=== PATIENT | male | born 1940 | race Caucasian/White ===

== ENCOUNTER → 2020-09-17 09:38 | Outpatient (BNVA) | payer MEDICARE, SELFPAY | PROVIDERS: Family Provider Nurse Practitioner; PCP Nurse Practitioner; Visit Provider Nurse Practitioner Family | DX: J44.1 Chronic obstructive pulmonary disease with (acute) exacerbation (principal); R06.02 Shortness of breath; F17.210 Nicotine dependence, cigarettes, uncomplicated | CPT/HCPCS: 71046; 80053; 85025 ==

== ENCOUNTER → 2020-12-28 10:30 | Outpatient (BNVA) | payer MEDICARE, SELFPAY | PROVIDERS: Family Provider Nurse Practitioner; PCP Nurse Practitioner; Visit Provider Nurse Practitioner Family | DX: K62.5 Hemorrhage of anus and rectum (principal); K64.9 Unspecified hemorrhoids | CPT/HCPCS: 85025 ==

== ENCOUNTER 2021-01-14 12:30 | Outpatient (CLI) | payer MEDICARE, SELFPAY ==
[2021-01-14] MEDS: iohexol 300 mg/mL 50 mL Btl PO (14:02)
[2021-01-14 14:28] LABS: Blood Urea Nitrogen 11 mg/dL (8-23)
--- NOTE | 2021-01-14 14:30 | CT_ITS ---
WS: [id number] Exam: CT chest abd pel w con* Date/Time of Exam: 01/14/2021 1:00 PM Reason For Exam: K62.89 - Other specified diseases of anus and rectum DLP: All CT scans at [facility] use at least one of these dose optimization techniques: automat ed exposure control; mA and/or kV adjustment per patient size (includes targeted exams where dose is matched to clinical indication); or iterative reconstruction. CT scan of the chest with contrast. There is a spiculated bilobulated mass in the left lower lobe measuring approximately 7.5 x 4.1 cm. A separate 1 cm spiculated nodule is seen in the lateral aspect of the left lower lobe. Moderate-sized left basal pleural effusion is seen. No pneumothorax. Central lobar emphysematous changes are noted. 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 No obvious dissection is seen. No significant mediastinal or hilar lymphadenop athy noted. The airway is patent. The central pulmonary arteries are clear. The lungs are hyperinflat ed. Extensive atherosclerotic plaquing of the thoracic aorta. No destructive bone lesions are noted. Coronary artery calcifications. No pericardial effusion. CT/CT chest abd pel w con* IMPRESSION: 1. 7.5 x 4.1 cm spiculated mass in the left lower lobe. There is an additional 1 cm spiculated nodule seen in the lateral aspect of the left lower lobe. This may represent primary pulmonary malignancy or metastatic disease. Moderate size left basal pleural effusion. 2. No significant lymphadenopathy in the chest. Central lobar emphysematous tushar nges. 3. Mild aneurysmal dilatation of the descending thoracic aorta. This measures 3 .6 cm at greatest diameter. No dissection is seen. CT scan of the abdomen and pelvis with oral and IV contrast. The liver, and spleen are unremarkable. Tiny stones in the gallbladder. Moder ate amount stool in the colon. The appendix is difficult to localize but there are no findings that suggest acute cholecystitis. No lymphadenopathy or free fl uid. Extensive atherosclerotic plaquing involving the common iliac arteries as well as the internal and external iliac arteries. No mass or lymphadenopathy in the pelvis. Intact urinary bladder. Prostatomegaly. 1.1 cm low-attenuation nod ule in the left lateral aspect of the prostate gland. No destructive bone lesio ns are seen. Degenerative anterolisthesis of L4 on L5. There is wall thickening of the stomach that might reflect gastritis. The pancreas is unremarkable. The portal vein and IVC are patent. There is mild dilatation of the upper abdomina l aorta measuring about 3.3 cm at greatest diameter. The remaining abdominal ao rta is normal in caliber. Extensive atherosclerotic plaquing of the abdominal a virgilio and major vessels. Normal adrenal glands. Small bilateral renal cysts are noted. The kidneys function normally. Small bilateral nonobstructing renal ston es as well as vascular calcifications. Small bowel loops are not dilated. IMPRESSION: 1. Cholelithiasis but no sign of acute cholecystitis. 2. Wall thickening of the stomach which may indicate gastritis. 3. Prostatomegaly with nonspecific 1.1 cm low-attenuation lesion in the left pr ostate gland. Malignancy not excluded. 4. Mild dilatation of the upper abdominal aorta measuring 3.3 cm at greatest di ameter. No dissection seen. 5. Small nonobstructing bilateral renal stones. Small bilateral renal cysts. 6. Advanced atherosclerotic disease of the abdominal aorta and major branches a s well as the major arteries in the pelvis.
[2021-01-14] MEDS: iodixanol 320 mg/mL 100mL Btl IV (14:39)
[2021-01-26 08:06] LABS: Miscellaneous Test See Scanned Lab Rpt
== END 2021-01-14 12:31 | disposition home or self-care (01) ==
PROVIDERS: PCP Nurse Practitioner Family; Visit Provider Surgery
DX: K92.1 Melena (principal); K62.89 Other specified diseases of anus and rectum; R39.11 Hesitancy of micturition; K80.20 Calculus of gallbladder without cholecystitis without obstruction; N40.0 Benign prostatic hyperplasia without lower urinary tract symptoms; N20.0 Calculus of kidney; I25.10 Atherosclerotic heart disease of native coronary artery without angina pectoris
CPT/HCPCS: 71260; 74177; 82565; 84520; 88341; 88342; Q9967

== ENCOUNTER → 2021-01-15 12:40 | Outpatient (BNVA) | payer MEDICARE, SELFPAY | PROVIDERS: PCP Nurse Practitioner Family; Visit Provider Surgery | DX: K62.89 Other specified diseases of anus and rectum (principal); R91.8 Other nonspecific abnormal finding of lung field; K92.1 Melena | CPT/HCPCS: 88305 ==

== ENCOUNTER 2021-01-28 15:07 | Outpatient (CLI) | payer MEDICARE, SELFPAY ==
[2021-01-28 17:09] LABS: Basophils # 0.1 10^3/uL (0.0-0.1); Eosinophils # 0.2 10^3/uL (0.0-0.8); Eosinophils % 2.3 %; Hematocrit 36.3 % (42.0-52.0); Hemoglobin 11.4 g/dL (11.7-16.6); Lymphocytes # 1.5 10^3/uL (0.8-4.8); Mean Corpuscular HGB Conc 31.4 g/dL (30.0-36.0); Mean Corpuscular Hemoglobin 28.3 pg (28.0-34.0); Mean Corpuscular Volume 90.1 fl (80-94); Mean Platelet Volume 12.3 fL (7.4-10.4); Monocytes # 0.7 10^3/uL (0.2-0.9); Monocytes % 9.3 %; Neutrophils # 4.79 10^3/uL (1.8-7.7); Neutrophils % 66.1 %; Nucleated Red Blood Cells % 0 %; Platelet Count 221 10^3/cmm (130-400); Red Blood Count 4.03 10^6/uL (4.1-5.3); Red Cell Distribution Width 16.9 % (12.1-15.1); White Blood Count 7.2 10^3/uL (4.0-10.0)
--- NOTE | 2021-01-28 18:03 | ONC CON_ITS ---
Dr. Kong New Patient Note Patient: Shlomo Villarreal Unit #: [id number]: 1940 Dicatated By: Bayron Kong M.D.Date of Visit: Jan 28, 2021 Onc MED New Patient/Consult Referring Physician: Dr. DARCIE GONSALVES M.D. Chief Complaint: Rectal cancer/lung mass. History of Present Illness: This is an 80-year-old man with recently diagnosed rectal adenocarcinoma. He also has CT evidence of a left lower lobe lung mass. He had presented with rectal bleeding, onset somewhere around January 2020. He underwent an evaluation in [place] with Dr. Reji Reyes. He underwent EGD and colonoscopy on 06/11/2020. The EGD showed acute antral erosive gastritis as well as erosive duodenitis. There were stigmata of recent bleeding. He was noted on digital exam to have a hard, fixed and nodular rectal mass estimated at 3 cm from the anal verge and estimated at 5 cm in size. Colonoscopy showed a partially circumferential mass which measured 5 cm in length. Biopsy showed fragments of adenomatous villoglandular mucosa. A 10 mm sigmoid colon polyp was consistent with tubular adenoma. His evaluation also included CT abdomen/pelvis and he was initially planned to have medical oncology and radiation oncology consultations, but he never followed through with that. His rectal bleeding persisted, and he was seen by Dr. Gonsalves on 12/29/2020. He underwent repeat biopsy of the rectal mass by radial scope on 01/15/2021. Pathology showed invasive adenocarcinoma with intact nuclear expression of mismatch repair proteins. In the meantime, CT scans of the chest, abdomen, and pelvis on 01/14/2021 showed evidence of a circumferential rectal mass extending over a length of 4.6 cm. Asymmetric soft tissue thickening along the posterior rectal wall slightly greater to the midline measured up to 2.5 cm. There is no adenopathy noted in the abdomen/pelvis, and there is no evidence of metastatic involvement in the liver. The prostate was noted to be enlarged with a nonspecific 1.1 cm low-attenuation lesion in the left prostate gland, malignancy not excluded. Also noted was a 7.5 x 4.1 cm spiculated mass in the lower lobe of the left lung with an additional 1 cm spiculated nodule in the lateral aspect of the left lower lobe. The appearance was consistent with primary pulmonary malignancy or metastatic disease. There was associated moderate sized left basal pleural effusion. There was no significant lymphadenopathy in the chest. He is seen now for further management. He has been generally weak, particularly during the past day or 2. His activity has been very limited for least several months. His ECOG score is 2. He has not had good appetite, but he has been eating some. His weight is down at least 20 pounds. He does not have fever or night sweats. He has shortness of breath and he does use inhalers regularly. He also uses oxygen at night. He has occasional smoker's cough. He has not had chest pain or hemoptysis. He does not complain of nausea. He does have constipation. His bowels move about every 3 days with milk of magnesia. He does tend to have some pain with bowel movements and he continues to have rectal bleeding, though lately it has been less. He has urinary frequency and hesitancy with urination. He has no significant joint or bone pain. He does not complain of headache. Recently he has had some dizziness. Is also recently had some numbness in his lip on the right side and he has noted some shaking in his right hand. Past Medical History: His medical history includes benign prostatic hypertrophy, and chronic obstructive pulmonary disease. He has a history of hypertension, currently not requiring medication. Past Surgical History: EGD and colonoscopy on 06/11/2020, and he underwent repeat rectal biopsy on 01/15/2021. His other surgical/procedural history consists of bilateral cataract excisions, detached retina repair, and left elbow surgery. Medications: Albuterol Sulfate HFA 2 Puff(s) (of 108 (90 base) mcg/act) Aerosol, solution Inhalation ac (tid) & at bedtime, Anusol-HC Cream Topical PRN, Budesonide 1 Inhalation (of 0.5 mg/2mL) Suspension Inhalation b.i.d., Lidocaine Cream Topical PRN, Perforomist 2 mL (of 20 mcg/2mL) Nebulization solution Inhalation b.i.d., Tamsulosin HCl 1 Capsule (of 0.4 mg) Oral b.i.d. Allergies: No Known Allergies. Social History: Mr. Villarreal is . He has a history of smoking 2 packs of cigarettes daily for 70 years. Alcohol use is estimated at 3-6 beers per day. Family History: Father lived to age 92. Mother of breast cancer. One brother is still living at age 80. Review Of Symptoms: Constitutional - He has been feeling weak generally, and his activity is limited. He has not been eating well. His weight is down at least 20 pounds. He does not have fever or night sweats. ECOG score is 2, Eyes - He has had a significant decline in vision since his eye surgery, ENMT - He has hearing loss. No tinnitus. He occasionally has sinus drainage. No mouth sores. No sore throat or difficulty swallowing, Hematologic/Lymphatic - He has easy bruising, Respiratory - He has shortness of breath and he is on inhalers. He uses oxygen at night. He has a smoker's cough. No pleuritic pain or hemoptysis, Cardiovascular - No angina pain. No palpitations, Gastrointestinal - He has been having constipation. His bowels move about every third day taking milk of magnesia. He has had red blood in the stool, but not as much recently. He does have some pain with bowel movements, Genitourinary (M) - No dysuria or hematuria. He has urinary frequency and hesitancy. No urgency or incontinence, Musculoskeletal - No significant joint or bone pain, Integumentary - No skin rash or other skin changes, Neurologic - No headache. Recently he has had some dizziness. He has had some numbness in his lip on the right side. He has had some shaking in his right hand. No other focal neurologic symptoms, Psychiatric - No anxiety or depression. No insomnia. Vital Signs: Performed on Jan 28, 2021 15:56: 0, 0, 21.67, 1.94 sq.m, 72 in, 98 %, 84 /min, 18 /min, 135/74 mm(hg), 98.4 F, and 159.8 lbs (HIGH). Physical Examination: Constitutional - He appears chronically ill, Eyes - Sclerae nonicteric. Conjunctivae clear, ENMT - No lesions noted in the oral cavity, Neck - No mass or thyromegaly, Hematologic/Lymphatic - No cervical, clavicular, or axillary adenopathy, Respiratory - Lungs are clear with diminished air movement bilaterally, Cardiovascular - Heart rhythm is regular. There is no murmur, gallop, or rub noted, Abdomen - Soft and non-tender. Liver and spleen are not enlarged. There is no abdominal mass or ascites noted and there is no inguinal adenopathy, Back/Spine - No spine or CVA tenderness noted, Extremities - Mild edema, Integumentary - No rashes. There is a fairly prominent actinic lesion on the right forearm, Neurologic - No focal neurologic deficits noted. Problem List: 1. Invasive adenocarcinoma of the rectum, MSI stable. Staging is incomplete. 2. Left lower lobe lung mass with associated pleural effusion. This could be metastatic, but the appearance is much more suggestive of primary lung malignancy. 3. He also had CT evidence of enlarged prostate containing a 1.1 cm low-attenuation lesion in the left prostate gland, also suspicious for malignancy. 4. He had EGD evidence of gastritis and duodenitis in May 2020. 5. COPD. 6. Benign prostatic hypertrophy. 7. He has a history of hypertension, currently not requiring medication. Problems Addressed with this Encounter and Plan: 1. Patient with invasive adenocarcinoma of the rectum, MSI stable. Staging is incomplete. He has associated rectal bleeding and he also appears to be experiencing some obstructive symptoms. He also has CT evidence of a left lower lobe lung mass, appearance of which is most suggestive of a second primary malignancy. With associated pleural effusion, it would appear to be locally advanced and inoperable. He also has poor performance status. Under the circumstances, his management is most likely going to be palliative, and I am inclined to recommend that we proceed with chemoradiation for the rectal cancer to control bleeding and prevent obstruction. During that time, we can arrange for further evaluation of the lung mass with thoracentesis and/or lung biopsy. He will have further evaluation/treatment planning as indicated. In the meantime, I will check baseline laboratory studies today to include CBC, comprehensive metabolic profile, serum iron studies, CEA level. 2. There was also CT evidence for possible malignancy in the prostate, and I will include a PSA level with his lab studies. He will have further evaluation as indicated. Signed By: Bayron Kong M.D. <<Signature on File>>
[2021-01-28 18:07] LABS: Carcinoembryonic Antigen 7.6 ng/mL (0.0-4.7)
[2021-01-28 18:18] LABS: Alanine Aminotransferase 11 U/L (0-41); Albumin Level 4.1 g/dL (3.5-5.2); Alkaline Phosphatase 104 IU/L (40-130); Anion Gap 12.4 (5-19); Aspartate Amino Transferase 21 U/L (0-40); Blood Urea Nitrogen 11 mg/dL (8-23); Calcium 8.8 mg/dL (8.5-10.5); Carbon Dioxide 29 mmol/L (22-29); Chloride 97 mmol/L (98-107); Globulin 3.1 g/dL (1.3-4.6); Glucose 82 mg/dL (65-115); Osmolality Calculated 276 mOsm/kg (285-295); Potassium 4.4 mmol/L (3.5-5.1); Sodium 134 mmol/L (136-145); Total Bilirubin 0.7 mg/dL (0.15-1.2); Total Protein 7.2 g/dL (6.6-8.7)
[2021-01-28 18:32] LABS: Iron 36 ug/dL (59-158); Percent Saturation 8.6 % (20-50); Total Iron Binding Capacity 414 mcg/dl; Unsaturated Iron Binding 378 ug/dL (112-347)
[2021-01-28 18:56] LABS: Slide Review Slide Review Perform
== END 2021-01-28 15:08 | disposition home or self-care (01) ==
LOC: ONCMED 15:16
PROVIDERS: PCP Nurse Practitioner Family; Visit Provider Internal Medicine Medical Oncology
DX: C20 Malignant neoplasm of rectum (principal); R91.8 Other nonspecific abnormal finding of lung field; N40.0 Benign prostatic hyperplasia without lower urinary tract symptoms; J90 Pleural effusion, not elsewhere classified; K29.70 Gastritis, unspecified, without bleeding; K29.80 Duodenitis without bleeding; J44.9 Chronic obstructive pulmonary disease, unspecified; Z79.899 Other long term (current) drug therapy
CPT/HCPCS: 36415; 80053; 82378; 83540; 83550; 84153; 85025; 86850; 86900; 99205

== ENCOUNTER 2021-02-18 06:35 | Outpatient (RCR) | payer MEDICARE, SELFPAY ==
--- NOTE | 2021-02-01 15:31 | N.ONRAD NP_ITS ---
Radiation Oncology Consultation Patient Name: Shlomo Villarreal Date of : 1940 Date of Service: 02/01/2021 Attending Physician: Amari De La Cruz M.D. Shlomo Villarreal was seen in consultation this afternoon at the request of Bayron Kong M.D. for consideration of pelvic radiotherapy in the management of a recently diagnosed rectal cancer. He previously was evaluated at [facility] in [place], [place] (medical records were requested and personally reviewed) during the early winter of this year. An EGD and colonoscopy were performed. A biopsy of a rectal mass 5 cm from the anal verge identified an invasive adenocarcinoma. A pathological consultation was requested from the [facility]. He was evaluated by a nurse practitioner in December for continued rectal bleeding (6 months). His initial hemoglobin was 10.5 g/dL and the RDW was elevated (20.5%). A thoracoabdominopelvic CT scan (independently visualized in [facility]) ordered on January 14, 2021 identified a circumferential rectal mass measuring 4.6 cm in length with asymmetric soft tissue thickening along the posterior wall, a 7.5 cm x 4.1 cm left lower lobe lung mass, a 1 cm spiculated nodule in the lateral aspect of the left lower lobe, and a moderate sized pleural effusion. An anoscopy with biopsy was performed by Santi Gonsalves M.D. on January 18, 2021. Pathology diagnosed an invasive adenocarcinoma with normal expression of DNA mismatch repair proteins. The CEA was elevated (7.6 ng/mL). The patient presents for discussion regarding pelvic radiotherapy. I discussed with Mr. Villarreal the AJCC presumed clinical stage IIIB (T3Nx) rectal cancer corresponding to his disease. I also reviewed the National Comprehensive Cancer Network Guidelines for neoadjuvant chemoradiotherapy or total neoadjuvant therapy preceding chemoradiation. In consideration of a probable synchronous lung cancer (potentially M1a -pleural effusion) disease, palliative radiotherapy should be considered. I anticipate a five week course of pelvic radiotherapy. A computed tomographic radiotherapy planning scan with contrast in the treatment position will be acquired to delineate the gross tumor volume and regional lymph nodes. The potential toxicities of pelvic radiotherapy were reviewed. The patient has verbalized understanding would like to proceed as recommended. The patient's medical treatment plan was discussed with Bayron Kong M.D. Signed by: Dr. Amari De La Cruz 02/01/2021 3:29:48 PM
--- NOTE | 2021-02-04 | CT_ITS ---
Radiation Therapy Planning CT images; total exam DLP: 988.22 mGy-cm MTDD
[2021-02-04] MEDS: iodixanol 320 mg/mL 100mL Btl (RAD THERAPY ONLY) IV (09:03)
[2021-02-16 14:49] LABS: Basophils # 0.1 10^3/uL (0.0-0.1); Basophils % 0.8 %; Eosinophils # 0.1 10^3/uL (0.0-0.8); Eosinophils % 1.6 %; Hematocrit 30.9 % (42.0-52.0); Hemoglobin 9.7 g/dL (11.7-16.6); Lymphocytes # 1.1 10^3/uL (0.8-4.8); Lymphocytes % 16.7 %; Mean Corpuscular HGB Conc 31.4 g/dL (30.0-36.0); Mean Corpuscular Hemoglobin 28.1 pg (28.0-34.0); Mean Corpuscular Volume 89.6 fl (80-94); Mean Platelet Volume 10.3 fL (7.4-10.4); Monocytes # 0.7 10^3/uL (0.2-0.9); Monocytes % 10.6 %; Neutrophils # 4.41 10^3/uL (1.8-7.7); Nucleated Red Blood Cells % 0 %; Platelet Count 274 10^3/cmm (130-400); Red Blood Count 3.45 10^6/uL (4.1-5.3); Red Cell Distribution Width 17.2 % (12.1-15.1); White Blood Count 6.3 10^3/uL (4.0-10.0)
[2021-02-16 15:18] LABS: Carcinoembryonic Antigen 6.5 ng/mL (0.0-4.7)
[2021-02-16 15:29] LABS: Alanine Aminotransferase 7 U/L (0-41); Albumin Level 3.6 g/dL (3.5-5.2); Alkaline Phosphatase 68 IU/L (40-130); Anion Gap 12.8 (5-19); Aspartate Amino Transferase 16 U/L (0-40); Blood Urea Nitrogen 14 mg/dL (8-23); Calcium 8.8 mg/dL (8.5-10.5); Carbon Dioxide 28 mmol/L (22-29); Chloride 102 mmol/L (98-107); Globulin 2.7 g/dL (1.3-4.6); Glucose 83 mg/dL (65-115); Osmolality Calculated 286 mOsm/kg (285-295); Potassium 4.8 mmol/L (3.5-5.1); Sodium 138 mmol/L (136-145); Total Bilirubin 0.7 mg/dL (0.15-1.2); Total Protein 6.3 g/dL (6.6-8.7)
--- NOTE | 2021-02-16 15:44 | ONCRAD TMN_ITS ---
Radiation Oncology Treatment Management Note Patient Name: Shlomo Villarreal Date of : 1940 Date of Service: 02/16/2021 Attending Physician: Amari De La Cruz M.D. Shlomo Villarreal is an 80 year old white male diagnosed with a clinical stage IIIB (T3Nx) adenocarcinoma of the rectum (normal expression of DNA mismatch repair proteins). The CEA was elevated (7.6 ng/mL). The patient has received 2 Gy of a prescribed 50 [place] with an intensity modulated radiotherapy plan utilizing a step and shoot treatment technique. He has been prescribed daily oral chemotherapy consisting of capecitabine (825 mg/m2). Upon review of systems, he described rectal pain related to the tumor. On physical examination, the patient weighed 164 lbs. His temperature was 97.9 ???F with a blood pressure of 140/83 mmHg. His pulse was 68 bpm and the respiratory rate was 18. No erythema was noted within the treatment vigli. Continue pelvic radiotherapy as prescribed. Signed by: Dr. Amari De La Cruz 02/16/2021 3:43:30 PM
== END 2021-02-18 23:59 | disposition home or self-care (01) ==
LOC: ONCMED 06:35
PROVIDERS: Internal Medicine Medical Oncology; PCP Nurse Practitioner Family; Visit Provider Radiology Radiation Oncology
DX: Z51.0 Encounter for antineoplastic radiation therapy (principal); C20 Malignant neoplasm of rectum; Z79.899 Other long term (current) drug therapy
CPT/HCPCS: 36415; 77300; 77301; 77334; 77338; 77386; 77470; 80053; 82378; 85025; 99205; Q9967

== ENCOUNTER 2021-03-19 06:16 | Outpatient (RCR) | payer MEDICARE, SELFPAY ==
--- NOTE | 2021-02-23 15:41 | ONCRAD TMN_ITS ---
Radiation Oncology Treatment Management Note Patient Name: Shlomo Villarreal Date of : 1940 Date of Service: 02/23/2021 Attending Physician: Amari De La Cruz M.D. Shlomo Villarreal is an 80 year old white male diagnosed with a clinical stage IIIB (T3Nx) adenocarcinoma of the rectum (normal expression of DNA mismatch repair proteins). The CEA was elevated (7.6 ng/mL). The patient has received 12 Gy of a prescribed 50 [place] with an intensity modulated radiotherapy plan utilizing a step and shoot treatment technique. He has been prescribed daily oral chemotherapy consisting of capecitabine (825 mg/m2). Upon review of systems, he described dysuria. On physical examination, the patient weighed 10 lbs. His temperature was 98.7 ???F with a blood pressure of 117/67 mmHg. His pulse was 74 bpm and the respiratory rate was 20. No erythema was noted within the treatment vigil. Continue pelvic radiotherapy as planned. I will order an UA for dysuria. Signed by: Dr. Amari De La Cruz 02/23/2021 3:40:35 PM
[2021-02-23 16:56] LABS: Basophils % 0.8 %; Eosinophils # 0.2 10^3/uL (0.0-0.8); Eosinophils % 3.5 %; Lymphocytes # 0.9 10^3/uL (0.8-4.8); Lymphocytes % 18.3 %; Mean Corpuscular HGB Conc 31.4 g/dL (30.0-36.0); Mean Corpuscular Hemoglobin 28.7 pg (28.0-34.0); Mean Corpuscular Volume 91.4 fl (80-94); Mean Platelet Volume 10.4 fL (7.4-10.4); Monocytes # 0.5 10^3/uL (0.2-0.9); Monocytes % 9.1 %; Neutrophils # 3.48 10^3/uL (1.8-7.7); Neutrophils % 67.7 %; Nucleated Red Blood Cells % 0 %; Platelet Count 304 10^3/cmm (130-400); Red Blood Count 3.83 10^6/uL (4.1-5.3); Red Cell Distribution Width 16.8 % (12.1-15.1); White Blood Count 5.1 10^3/uL (4.0-10.0)
[2021-02-23 18:03] LABS: Alanine Aminotransferase 9 U/L (0-41); Alkaline Phosphatase 72 IU/L (40-130); Anion Gap 11.9 (5-19); Aspartate Amino Transferase 17 U/L (0-40); Blood Urea Nitrogen 15 mg/dL (8-23); Carbon Dioxide 32 mmol/L (22-29); Chloride 98 mmol/L (98-107); Globulin 2.6 g/dL (1.3-4.6); Glucose 95 mg/dL (65-115); Osmolality Calculated 287 mOsm/kg (285-295); Potassium 3.9 mmol/L (3.5-5.1); Sodium 138 mmol/L (136-145); Total Bilirubin 0.8 mg/dL (0.15-1.2); Total Protein 6.6 g/dL (6.6-8.7)
[2021-02-23 19:03] LABS: Bilirubin Urine Neg (Negative); Blood Urine Neg (Negative); Glucose Urine UA Norm (Normal); Ketones Urine Negative (Negative); Nitrate Urine Negative (Negative); Protein Urine Neg (Negative); Specific Gravity, Urine 1.015 (1.005-1.030); Urine Appearance Hazy (CLEAR); Urine Color Yellow (Yellow); pH Urine 6 (5-7)
[2021-02-23 19:04] LABS: Add Urine Microscopic? YES; Bacteria Urine 2+ /hpf; Leukocyte Esterase Urine 2+ (Negative); Mucus Urine 1+ /hpf; RBC Urine 0-4 /hpf (0-2); Squamous Epithelial Cell Urine 0-4 /hpf (0-5); Urobilinogen Urine Norm (Negative); WBC Urine 25-40 /hpf (0-5)
[2021-02-23 19:05] LABS: Add Urine Culture? Yes
--- NOTE | 2021-03-02 15:46 | ONCRAD TMN_ITS ---
Radiation Oncology Treatment Management Note Patient Name: Shlomo Villarreal Date of : 1940 Date of Service: 03/02/2021 Attending Physician: Amari De La Cruz M.D. Shlomo Villarreal is an 80 year old white male diagnosed with a clinical stage IIIB (T3Nx) adenocarcinoma of the rectum (normal expression of DNA mismatch repair proteins). The CEA was elevated (7.6 ng/mL). The patient has received 22 Gy of a prescribed 50 Hudson with an intensity modulated radiotherapy plan utilizing a step and shoot treatment technique. He has been prescribed daily oral chemotherapy consisting of capecitabine (825 mg/m2). Upon review of systems, he described continued dysuria (UA showed probable contamination). On physical examination, the patient weighed 157 lbs. His temperature was 98.1 ???F with a blood pressure of 127/66 mmHg. His pulse was 65 bpm and the respiratory rate was 20. No erythema was noted within the treatment vigil. Continue pelvic radiotherapy as planned. I will order labs and prescribe Bactrim DS for possible UTI. Signed by: Dr. Amari De La Cruz 03/02/2021 3:45:10 PM
[2021-03-02 16:02] LABS: Basophils # 0.1 10^3/uL (0.0-0.1); Basophils % 0.9 %; Eosinophils # 0.1 10^3/uL (0.0-0.8); Eosinophils % 2.2 %; Hematocrit 29.6 % (42.0-52.0); Hemoglobin 9.4 g/dL (11.7-16.6); Lymphocytes # 0.7 10^3/uL (0.8-4.8); Lymphocytes % 12.7 %; Mean Corpuscular HGB Conc 31.8 g/dL (30.0-36.0); Mean Corpuscular Hemoglobin 28.9 pg (28.0-34.0); Mean Corpuscular Volume 91.1 fl (80-94); Mean Platelet Volume 10.8 fL (7.4-10.4); Monocytes # 0.6 10^3/uL (0.2-0.9); Monocytes % 10.9 %; Neutrophils # 4.07 10^3/uL (1.8-7.7); Neutrophils % 72.9 %; Nucleated Red Blood Cells % 0 %; Platelet Count 365 10^3/cmm (130-400); Red Blood Count 3.25 10^6/uL (4.1-5.3); Red Cell Distribution Width 17.6 % (12.1-15.1); White Blood Count 5.6 10^3/uL (4.0-10.0)
[2021-03-02 16:21] LABS: Alanine Aminotransferase 8 U/L (0-41); Albumin Level 3.6 g/dL (3.5-5.2); Alkaline Phosphatase 66 IU/L (40-130); Anion Gap 10.6 (5-19); Aspartate Amino Transferase 14 U/L (0-40); Blood Urea Nitrogen 17 mg/dL (8-23); Calcium 8.9 mg/dL (8.5-10.5); Carbon Dioxide 31 mmol/L (22-29); Chloride 101 mmol/L (98-107); Globulin 2.7 g/dL (1.3-4.6); Glucose 92 mg/dL (65-115); Osmolality Calculated 287 mOsm/kg (285-295); Potassium 4.6 mmol/L (3.5-5.1); Sodium 138 mmol/L (136-145); Total Bilirubin 0.8 mg/dL (0.15-1.2); Total Protein 6.3 g/dL (6.6-8.7)
--- NOTE | 2021-03-09 15:26 | ONCRAD TMN_ITS ---
Radiation Oncology Treatment Management Note Patient Name: Shlomo Villarreal Date of : 1940 Date of Service: 03/09/2021 Attending Physician: Amari De La Cruz M.D. Shlomo Villarreal is an 80 year old white male diagnosed with a clinical stage IIIB (T3Nx) adenocarcinoma of the rectum (normal expression of DNA mismatch repair proteins). The CEA was elevated (7.6 ng/mL). The patient has received 32 Gy of a prescribed 50 [place] with an intensity modulated radiotherapy plan utilizing a step and shoot treatment technique. He has been prescribed daily oral chemotherapy consisting of capecitabine (825 mg/m2). Upon review of systems, he denied diarrhea. The dysuria has resolved. On physical examination, the patient weighed 154 lbs. His temperature was 98.1 ???F and the blood pressure was 124/66 mmHg. His pulse was 67 bpm and the respiratory rate was 18. No erythema was noted within the treatment vigil. Continue pelvic radiotherapy as prescribed. Signed by: Dr. Amari De La Cruz 03/09/2021 3:24:17 PM
[2021-03-10 15:44] LABS: Eosinophils # 0.3 10^3/uL (0.0-0.8); Eosinophils % 6.1 %; Hematocrit 32.8 % (42.0-52.0); Hemoglobin 10.5 g/dL (11.7-16.6); Lymphocytes # 0.6 10^3/uL (0.8-4.8); Lymphocytes % 14.1 %; Mean Corpuscular Hemoglobin 29.2 pg (28.0-34.0); Mean Corpuscular Volume 91.4 fl (80-94); Mean Platelet Volume 9.7 fL (7.4-10.4); Monocytes # 0.5 10^3/uL (0.2-0.9); Monocytes % 11.9 %; Neutrophils # 2.75 10^3/uL (1.8-7.7); Neutrophils % 66.7 %; Nucleated Red Blood Cells % 0 %; Platelet Count 249 10^3/cmm (130-400); Red Blood Count 3.59 10^6/uL (4.1-5.3); Red Cell Distribution Width 18.9 % (12.1-15.1); White Blood Count 4.1 10^3/uL (4.0-10.0)
[2021-03-10 16:04] LABS: Alanine Aminotransferase 11 U/L (0-41); Albumin Level 3.8 g/dL (3.5-5.2); Alkaline Phosphatase 65 IU/L (40-130); Anion Gap 13.9 (5-19); Aspartate Amino Transferase 20 U/L (0-40); Blood Urea Nitrogen 18 mg/dL (8-23); Calcium 9.2 mg/dL (8.5-10.5); Carbon Dioxide 31 mmol/L (22-29); Chloride 98 mmol/L (98-107); Globulin 2.6 g/dL (1.3-4.6); Glucose 97 mg/dL (65-115); Osmolality Calculated 288 mOsm/kg (285-295); Potassium 4.9 mmol/L (3.5-5.1); Sodium 138 mmol/L (136-145); Total Bilirubin 0.9 mg/dL (0.15-1.2); Total Protein 6.4 g/dL (6.6-8.7)
--- NOTE | 2021-03-16 15:40 | ONCRAD TMN_ITS ---
Radiation Oncology Treatment Management Note Patient Name: Shlomo Villarreal Date of : 1940 Date of Service: 03/16/2021 Attending Physician: Amari De La Cruz M.D. Shlomo Villarreal is an 80 year old white male diagnosed with a clinical stage IIIB (T3Nx) adenocarcinoma of the rectum (normal expression of DNA mismatch repair proteins). The CEA was elevated (7.6 ng/mL). The patient has received 42 Gy of a prescribed 50 Hudson with an intensity modulated radiotherapy plan utilizing a step and shoot treatment technique. He has been prescribed daily oral chemotherapy consisting of capecitabine (825 mg/m2). Upon review of systems, he denied diarrhea. On physical examination, the patient weighed 155 lbs. His temperature was 97.8 ???F and the blood pressure was 111/56 mmHg. His pulse was 69 bpm and the respiratory rate was 20. A grade II erythema was noted within the gluteal cleft. Continue pelvic radiotherapy as planned. Signed by: Dr. Amari De La Cruz 03/16/2021 3:39:22 PM
[2021-03-16 16:00] LABS: Basophils % 0.8 %; Eosinophils # 0.3 10^3/uL (0.0-0.8); Hematocrit 32.1 % (42.0-52.0); Hemoglobin 10.4 g/dL (11.7-16.6); Lymphocytes # 0.5 10^3/uL (0.8-4.8); Lymphocytes % 13.5 %; Mean Corpuscular HGB Conc 32.4 g/dL (30.0-36.0); Mean Corpuscular Hemoglobin 29.8 pg (28.0-34.0); Mean Platelet Volume 9.9 fL (7.4-10.4); Monocytes # 0.5 10^3/uL (0.2-0.9); Monocytes % 13.3 %; Neutrophils # 2.56 10^3/uL (1.8-7.7); Neutrophils % 63.9 %; Nucleated Red Blood Cells % 0 %; Platelet Count 242 10^3/cmm (130-400); Red Blood Count 3.49 10^6/uL (4.1-5.3); Red Cell Distribution Width 20.1 % (12.1-15.1)
[2021-03-16 16:24] LABS: Alanine Aminotransferase 11 U/L (0-41); Albumin Level 3.8 g/dL (3.5-5.2); Alkaline Phosphatase 69 IU/L (40-130); Anion Gap 8.7 (5-19); Aspartate Amino Transferase 21 U/L (0-40); Blood Urea Nitrogen 16 mg/dL (8-23); Calcium 8.5 mg/dL (8.5-10.5); Carbon Dioxide 34 mmol/L (22-29); Chloride 101 mmol/L (98-107); Globulin 2.3 g/dL (1.3-4.6); Glucose 107 mg/dL (65-115); Osmolality Calculated 290 mOsm/kg (285-295); Potassium 4.7 mmol/L (3.5-5.1); Sodium 139 mmol/L (136-145); Total Bilirubin 0.7 mg/dL (0.15-1.2); Total Protein 6.1 g/dL (6.6-8.7)
== END 2021-03-21 23:59 | disposition home or self-care (01) ==
LOC: ONCMED 06:16
PROVIDERS: Internal Medicine Medical Oncology; Absent Provider Radiology Radiation Oncology; PCP Nurse Practitioner Family; Visit Provider Radiology Radiation Oncology
DX: Z51.0 Encounter for antineoplastic radiation therapy (principal); C20 Malignant neoplasm of rectum; R79.89 Other specified abnormal findings of blood chemistry; Z79.899 Other long term (current) drug therapy
CPT/HCPCS: 36415; 77014; 77336; 77386; 80053; 81001; 85025; 87086

== ENCOUNTER 2021-04-29 10:57 | Outpatient (RCR) | payer MEDICARE, SELFPAY ==
[2021-04-29 11:37] LABS: Basophils % 0.9 %; Eosinophils # 0.1 10^3/uL (0.0-0.8); Eosinophils % 1.7 %; Hematocrit 33.4 % (42.0-52.0); Hemoglobin 10.9 g/dL (11.7-16.6); Lymphocytes % 20.5 %; Mean Corpuscular HGB Conc 32.6 g/dL (30.0-36.0); Mean Corpuscular Hemoglobin 29.9 pg (28.0-34.0); Mean Corpuscular Volume 91.5 fl (80-94); Mean Platelet Volume 9.9 fL (7.4-10.4); Monocytes # 0.6 10^3/uL (0.2-0.9); Monocytes % 12.4 %; Neutrophils % 64.1 %; Nucleated Red Blood Cells % 0 %; Platelet Count 246 10^3/cmm (130-400); Red Blood Count 3.65 10^6/uL (4.1-5.3); Red Cell Distribution Width 20.5 % (12.1-15.1); White Blood Count 4.7 10^3/uL (4.0-10.0)
[2021-04-29 11:57] LABS: Alanine Aminotransferase 8 U/L (0-41); Albumin Level 3.6 g/dL (3.5-5.2); Alkaline Phosphatase 80 IU/L (40-130); Anion Gap 9.4 (5-19); Aspartate Amino Transferase 15 U/L (0-40); Blood Urea Nitrogen 14 mg/dL (8-23); Calcium 8.3 mg/dL (8.5-10.5); Carbon Dioxide 31 mmol/L (22-29); Chloride 104 mmol/L (98-107); Globulin 2.4 g/dL (1.3-4.6); Glucose 87 mg/dL (65-115); Iron 50 ug/dL (59-158); Osmolality Calculated 290 mOsm/kg (285-295); Percent Saturation 15.1 % (20-50); Potassium 4.4 mmol/L (3.5-5.1); Sodium 140 mmol/L (136-145); Total Bilirubin 0.7 mg/dL (0.15-1.2); Total Iron Binding Capacity 330 mcg/dl; Unsaturated Iron Binding 280 ug/dL (112-347)
[2021-04-29 12:39] LABS: Carcinoembryonic Antigen 5.4 ng/mL (0.0-4.7)
--- NOTE | 2021-05-03 07:15 | ONC FU_ITS ---
Dr. Kong Patient Follow-Up Note Patient: Shlomo Villarreal Unit #: [id number]: 1940 Dicatated By: Bayron Kong M.D.Date of Visit:Apr 29, 2021 Onc Med Follow-up/Prog Note Chief Complaint: Rectal cancer. History of Present Illness: This is an 81 year-old man with invasive adenocarcinoma of the rectum, MSI stable. He also had CT evidence of a left lower lobe lung mass. He had presented with rectal bleeding, onset somewhere around January 2020. He underwent an evaluation in [place] with Dr. Reji Reyes. He underwent EGD and colonoscopy on 06/11/2020. The EGD showed acute antral erosive gastritis as well as erosive duodenitis. There were stigmata of recent bleeding. He was noted on digital exam to have a hard, fixed and nodular rectal mass estimated at 3 cm from the anal verge and estimated at 5 cm in size. Colonoscopy showed a partially circumferential mass which measured 5 cm in length. Biopsy showed fragments of adenomatous villoglandular mucosa. A 10 mm sigmoid colon polyp was consistent with tubular adenoma. His evaluation also included CT abdomen/pelvis and he was initially planned to have medical oncology and radiation oncology consultations, but he never followed through with that. His rectal bleeding persisted, and he was seen by Dr. Gonsalves on 12/29/2020. He underwent repeat biopsy of the rectal mass by radial scope on 01/15/2021. Pathology showed invasive adenocarcinoma with intact nuclear expression of mismatch repair proteins. In the meantime, CT scans of the chest, abdomen, and pelvis on 01/14/2021 showed evidence of a circumferential rectal mass extending over a length of 4.6 cm. Asymmetric soft tissue thickening along the posterior rectal wall slightly greater to the midline measured up to 2.5 cm. There is no adenopathy noted in the abdomen/pelvis, and there is no evidence of metastatic involvement in the liver. The prostate was noted to be enlarged with a nonspecific 1.1 cm low-attenuation lesion in the left prostate gland, malignancy not excluded. Also noted was a 7.5 x 4.1 cm spiculated mass in the lower lobe of the left lung with an additional 1 cm spiculated nodule in the lateral aspect of the left lower lobe. The appearance was consistent with primary pulmonary malignancy or metastatic disease. There was associated moderate sized left basal pleural effusion. There was no significant lymphadenopathy in the chest. He was seen here initially on 01/28/2021. As there was suspected malignancy in the left lung and he had fairly marginal performance status, his initial management was conservative and limited to chemoradiation utilizing Xeloda for chemosensitization. His baseline CEA was 7.6 ng/mL. His PSA was elevated at 26.550 ng/mL. After review of the CT scans, he was given empiric antibiotic therapy with Levaquin for possible pneumonia. He completed radiation on 03/19/2021 to a total dose of 4800 cGy administered in 24 fractions, his final planned fraction having been omitted due to a pretty severe skin reaction. His other medical illnesses have been limited to hypertension, COPD, and benign prostatic hypertrophy. He has a history of smoking 2 packs of cigarettes daily for 70 years, and he has a history of drinking 3-6 beers per day. INTERIM HISTORY: Follow recovery from the radiation he had colorectal surgery consultation with Dr. Eder Stanford. His further evaluation included an MRI of the pelvis on 04/26/2021. That study showed a low rectal tumor with the distal margin of the mass located approximately 1.7 cm proximal to the internal anal sphincter. The mass measured 3.1 cm transversely by 3.4 cm in length and approximately 1.5 cm in maximal anteroposterior thickness. It was noted to wrap approximately 180 degrees along the anterior margin of the distal rectum. It was noted to invade the muscularis propria. There was spiculation of the mesorectal fat noted, particularly along the right lateral margin, felt likely to be desmoplastic reaction (T2). Mild mesial rectal fat tumor invasion (T3a-b) was felt to be less likely. The mesial rectal fascia did not appear to be invaded. There were no enlarged perirectal lymph nodes noted. With those findings, he was recommended to have further staging with CT scans of the chest, abdomen, and pelvis. Those studies, on 04/29/2021, showed resolution of previously described left lower lobe pulmonary infiltrates. There was just a small residual left pleural effusion. There were moderate chronic emphysematous changes. There was no mediastinal or hilar adenopathy noted. The previously described nodular distal rectal lesion appeared improved with treatment-related changes. Induration was noted in the surrounding perirectal fat. There was no evidence of metastatic disease in the abdomen/pelvis. He is seen now for a follow-up visit. He still has some residual skin reaction from the radiation, but it is getting better. He also still has a few pains in the rectal area, but his stools now are more solid and he has not had any further rectal bleeding. He still has limited activity tolerance. ECOG score is 2. His appetite is better. His weight is down just a couple of pounds. He does not have fever or night sweats. He has not had sore mouth or throat. He has his regular cough . He is sometimes short of breath, but that is chronic. He does not complain of chest pain. He has no other GI complaints. He does have some urgency with urination, but no dysuria or hematuria. He has no significant joint or bone pain. He does not complain of headache. He has occasional orthostatic lightheadedness and he sometimes has numbness in his fingers. Medications: Albuterol Sulfate HFA 2 Puff(s) (of 108 (90 base) mcg/act) Aerosol, solution Inhalation ac (tid) & at bedtime, Anusol-HC Cream Topical PRN, Budesonide 1 Inhalation (of 0.5 mg/2mL) Suspension Inhalation b.i.d., Lidocaine Cream Topical PRN, Perforomist 2 mL (of 20 mcg/2mL) Nebulization solution Inhalation b.i.d., Tamsulosin HCl 1 Capsule (of 0.4 mg) Oral b.i.d. Allergies: No Known Allergies. Vital Signs: Performed on Apr 29, 2021 14:50 Height - 72.00 in Weight - 157.8 lbs (HIGH) BSA - 1.93 sq.m BMI - 21.40 Temperature - 98.7 F Pulse - 84 /min Respiration - 18 /min BP - 129/74 mm(hg) O2 Sat - 95 % (LOW) Pain - 5 Fatigue - 5 Physical Examination: Constitutional - He appears somewhat weak generally, Eyes - Sclerae nonicteric. Conjunctivae clear, ENMT - No lesions noted in the oral cavity, Hematologic/Lymphatic - No cervical, clavicular, or axillary adenopathy, Respiratory - Lungs sound clear with diminished air movement bilaterally, Cardiovascular - Heart rhythm is regular. There is no murmur, gallop, or rub noted, Abdomen - Soft. Liver and spleen are not enlarged. There is no abdominal mass or ascites noted and there is no inguinal adenopathy, Extremities - No edema, Neurologic - No focal neurologic deficits noted. Lab/Imaging: Test performed on Apr 29, 2021 11:20 Iron 50 mcg/dL Sodium 140 mmol/L Iron Binding Capacity (TIBC) 330 mcg/dl Potassium 4.4 mmol/L % Iron Saturation 15.1 % Chloride 104 mmol/L CO2 31 mmol/L UIBC 280 mcg/dL Anion Gap 9.4 BUN 14 mg/dL Creatinine 0.9 mg/dL Cr Clearance (Est) 64.07 mL/min Glucose 87 mg/dL Osmolality - Calculated 290 mOsm/kg Calcium 8.3 mg/dL Protein, Total 6.0 g/dL Albumin 3.6 g/dL Globulin 2.4 g/dL Bilirubin, Total 0.7 mg/dL ALT (SGPT) 8 U/L AST (SGOT) 15 U/L Alkaline Phosphatase 80 IU/L WBC 4.7 10 3/uL RBC 3.65 10 6/uL HGB 10.9 g/dL HCT 33.4 % MCV 91.5 fl MCH 29.9 pg MCHC 32.6 g/dL RDW 20.5 % Platelet Count 246 10 3/cmm MPV 9.9 fL Neutrophils 3.00 10 3/uL Lymphocytes 1.0 10 3/uL Monocytes 0.6 10 3/uL Eosinophils 0.1 10 3/uL Basophils 0.0 10 3/uL Neutrophil % 64.1 % Lymphocyte % 20.5 % Monocyte % 12.4 % Eosinophil % 1.7 % Basophils % 0.9 % NRBC % 0 % CEA 5.4 ng/mL Problem List: 1. Invasive adenocarcinoma of the rectum, MSI stable. 2. Left lower lobe lung mass with associated pleural effusion. It was initially suspected to be malignant, but it resolved on empiric antibiotic therapy, consistent with inflammatory changes. 3. There was CT evidence of enlarged prostate containing a 1.1 cm low-attenuation lesion in the left prostate gland, also suspicious for malignancy. 4. He had EGD evidence of gastritis and duodenitis in May 2020. 5. COPD. 6. He has a history of hypertension, currently not requiring medication. Problems Addressed with this Encounter and Plan: 1. Patient with invasive adenocarcinoma of the rectum, MSI stable. There was uncertainty as to the initial staging, but due to his marginal performance status and suspected malignancy in the left lung, his initial treatment was limited to chemoradiation utilizing Xeloda for chemosensitization. Radiation was completed on 03/19/2021 to a total dose of 4800 cGy administered in 24 fractions, his final planned fraction having been omitted due to a pretty severe skin reaction. He appears to have had a significant response. His posttreatment MRI shows findings consistent with T2, N0 disease. With improvement in the left lung findings on the CT scan and in the absence of any other evidence of metastatic disease, we discussed the fact that disease would potentially be curable with surgery. With the location of the tumor, though, it would necessitate an AP resection and a permanent ostomy. At this point, at least, he is opposed to having that procedure, and he prefers instead to just be followed with observation. As such, I will tentatively plan to see him for a follow-up visit in 3 months. 2. There was also CT evidence for possible malignancy in the prostate, and his PSA level was elevated. He will require evaluation by a urologist. 3. He has iron deficiency anemia. He will continue his oral iron supplement. Signed By: Bayron Kong M.D. <<Signature on File>>
== END 2021-05-21 23:59 | disposition home or self-care (01) ==
LOC: ONCMED 10:57
PROVIDERS: PCP Nurse Practitioner Family; Visit Provider Internal Medicine Medical Oncology
DX: Z08 Encounter for follow-up examination after completed treatment for malignant neoplasm (principal); Z85.048 Personal history of other malignant neoplasm of rectum, rectosigmoid junction, and anus; Z85.118 Personal history of other malignant neoplasm of bronchus and lung; N40.0 Benign prostatic hyperplasia without lower urinary tract symptoms; K29.70 Gastritis, unspecified, without bleeding; K29.80 Duodenitis without bleeding; J44.9 Chronic obstructive pulmonary disease, unspecified; Z86.79 Personal history of other diseases of the circulatory system; Z92.21 Personal history of antineoplastic chemotherapy; Z92.3 Personal history of irradiation; Z79.899 Other long term (current) drug therapy; C20 Malignant neoplasm of rectum; R91.8 Other nonspecific abnormal finding of lung field
CPT/HCPCS: 36415; 80053; 82378; 83540; 83550; 85025; 99214

== ENCOUNTER 2021-04-29 11:35 | Outpatient (CLI) | payer MEDICARE, SELFPAY ==
--- NOTE | 2021-04-29 11:41 | CT_ITS ---
WS: [id number] CT CHEST, ABDOMEN, AND PELVIS TECHNIQUE: Contrast-enhanced CT of the chest, abdomen, and pelvis with coronal and sagittal reformatt ed images. CLINICAL INFORMATION: MALIGNANT NEOPLASM OF RECTUM, OTHER NONSPECIFIC ABNORMAL FIN COMPARISON: CT January 14, 2021 DLP: 1991.[address] scans at [facility] use at least one of these dose optimization techniques: automated e xposure control; mA and/or kV adjustment per patient size (includes targeted exams where dose is matc hed to clinical indication); or iterative reconstruction. CT CHEST: Moderate chronic emphysematous changes. No acute pulmonary infiltrates. No focal pneumonia or pleural fluid. No evidence of metastatic disease in the chest. Previous described left lower lobe pulmonary infiltrates have resolved. Small left pleural effusion. No mediastinal or hilar lymphadenopathy. Small hazy opacity left lower lobe measuring 6 mm. Additional small opacity near the left hemidiaphra gm measuring 5 mm. Aortic calcification. Stable slightly ectatic thoracic aorta. No mediastinal or hi lar lymphadenopathy. Coronary calcification. No axillary lymphadenopathy. CT ABDOMEN AND PELVIS: History of circumferential rectal mass. Soft tissue thickening along the posterior rectal wall appear s improved compared to previous. Mild diffuse thickening of the distal rectum likely due to treatment -related changes. No evidence of progression. Prostate calcification. Prostate measures 4.9 cm. Mild diffuse fatty infiltration of the liver. Radha l gallbladder. Tiny cholelithiasis or gallbladder sludge. Normal portal vein and splenic vein. Adrena l glands are normal. No hydronephrosis in either kidney. Small bilateral renal cysts. Mild diffuse bl adder wall thickening. Mild left colon constipation. Dense aortic calcification. No abdominal or pelv ic lymphadenopathy. No inguinal lymphadenopathy. Grade 1 anterolisthesis L4 on L5. CT/CT chest abd pel w con* IMPRESSION: 1. Previous described left lower lobe infiltrates have resolved 2. No evidence of metastatic disease in the chest abdomen or pelvis. 3. Previously described nodular distal rectal lesion appears improved with chris atment-related changes. Induration in the surrounding perirectal fat. No eviden ce of progression. 4. No other significant changes compared to previous.
[2021-04-29] MEDS: iohexol 300 mg/mL 50 mL Btl PO (15:11)
[2021-04-29] MEDS: iohexol 300 mg/mL 100 mL Btl IV (15:11)
== END 2021-04-29 11:36 | disposition home or self-care (01) ==
PROVIDERS: PCP Nurse Practitioner Family; Visit Provider Internal Medicine Medical Oncology
DX: C20 Malignant neoplasm of rectum (principal); R91.8 Other nonspecific abnormal finding of lung field
CPT/HCPCS: 36415; 71260; 74177; 80053; 82378; 83540; 83550; 85025; 99214; Q9967

== ENCOUNTER 2021-08-03 13:14 | Outpatient (CLI) | payer MEDICARE, SELFPAY ==
[2021-08-03 16:34] LABS: Basophils # 0.1 10^3/uL (0.0-0.1); Basophils % 1.7 %; Eosinophils # 0.3 10^3/uL (0.0-0.8); Eosinophils % 5.8 %; Hematocrit 41.6 % (42.0-52.0); Hemoglobin 13.5 g/dL (11.7-16.6); Lymphocytes # 0.8 10^3/uL (0.8-4.8); Lymphocytes % 17.1 %; Mean Corpuscular HGB Conc 32.5 g/dL (30.0-36.0); Mean Corpuscular Hemoglobin 31.6 pg (28.0-34.0); Mean Corpuscular Volume 97.4 fl (80-94); Mean Platelet Volume 10.1 fL (7.4-10.4); Monocytes # 0.4 10^3/uL (0.2-0.9); Monocytes % 8.7 %; Neutrophils # 3.13 10^3/uL (1.8-7.7); Neutrophils % 66.7 %; Nucleated Red Blood Cells % 0 %; Platelet Count 227 10^3/cmm (130-400); Red Blood Count 4.27 10^6/uL (4.1-5.3); White Blood Count 4.7 10^3/uL (4.0-10.0)
--- NOTE | 2021-08-03 16:39 | ONC FU_ITS ---
Lynn Mendoza Progress Note Patient: Shlomo Villarreal Unit #: [id number]: [id number] Dicatated By: Lynn Mendoza N.P.Date of Visit:Aug 03, 2021 Onc MED Follow-up/Prog Note Chief Complaint: Rectal cancer. History of Present Illness: This is an 81 year-old man with invasive adenocarcinoma of the rectum, MSI stable. He also had CT evidence of a left lower lobe lung mass. He had presented with rectal bleeding, onset somewhere around January 2020. He underwent an evaluation in [place] with Dr. Reji Reyes. He underwent EGD and colonoscopy on 06/11/2020. The EGD showed acute antral erosive gastritis as well as erosive duodenitis. There were stigmata of recent bleeding. He was noted on digital exam to have a hard, fixed and nodular rectal mass estimated at 3 cm from the anal verge and estimated at 5 cm in size. Colonoscopy showed a partially circumferential mass which measured 5 cm in length. Biopsy showed fragments of adenomatous villoglandular mucosa. A 10 mm sigmoid colon polyp was consistent with tubular adenoma. His evaluation also included CT abdomen/pelvis and he was initially planned to have medical oncology and radiation oncology consultations, but he never followed through with that. His rectal bleeding persisted, and he was seen by Dr. Gonsalves on 12/29/2020. He underwent repeat biopsy of the rectal mass by radial scope on 01/15/2021. Pathology showed invasive adenocarcinoma with intact nuclear expression of mismatch repair proteins. In the meantime, CT scans of the chest, abdomen, and pelvis on 01/14/2021 showed evidence of a circumferential rectal mass extending over a length of 4.6 cm. Asymmetric soft tissue thickening along the posterior rectal wall slightly greater to the midline measured up to 2.5 cm. There is no adenopathy noted in the abdomen/pelvis, and there is no evidence of metastatic involvement in the liver. The prostate was noted to be enlarged with a nonspecific 1.1 cm low-attenuation lesion in the left prostate gland, malignancy not excluded. Also noted was a 7.5 x 4.1 cm spiculated mass in the lower lobe of the left lung with an additional 1 cm spiculated nodule in the lateral aspect of the left lower lobe. The appearance was consistent with primary pulmonary malignancy or metastatic disease. There was associated moderate sized left basal pleural effusion. There was no significant lymphadenopathy in the chest. He was seen here initially on 01/28/2021. As there was suspected malignancy in the left lung and he had fairly marginal performance status, his initial management was conservative and limited to chemoradiation utilizing Xeloda for chemosensitization. His baseline CEA was 7.6 ng/mL. His PSA was elevated at 26.550 ng/mL. After review of the CT scans, he was given empiric antibiotic therapy with Levaquin for possible pneumonia. He completed radiation on 03/19/2021 to a total dose of 4800 cGy administered in 24 fractions, his final planned fraction having been omitted due to a pretty severe skin reaction. His other medical illnesses have been limited to hypertension, COPD, and benign prostatic hypertrophy. He has a history of smoking 2 packs of cigarettes daily for 70 years, and he has a history of drinking 3-6 beers per day. INTERIM HISTORY: Following recovery from the radiation he had colorectal surgery consultation with Dr. Eder Stanford. His further evaluation included an MRI of the pelvis on 04/26/2021. That study showed a low rectal tumor with the distal margin of the mass located approximately 1.7 cm proximal to the internal anal sphincter. The mass measured 3.1 cm transversely by 3.4 cm in length and approximately 1.5 cm in maximal anteroposterior thickness. It was noted to wrap approximately 180 degrees along the anterior margin of the distal rectum. It was noted to invade the muscularis propria. There was spiculation of the mesorectal fat noted, particularly along the right lateral margin, felt likely to be desmoplastic reaction (T2). Mild mesial rectal fat tumor invasion (T3a-b) was felt to be less likely. The mesial rectal fascia did not appear to be invaded. There were no enlarged perirectal lymph nodes noted. With those findings, he was recommended to have further staging with CT scans of the chest, abdomen, and pelvis. Those studies, on 04/29/2021, showed resolution of previously described left lower lobe pulmonary infiltrates. There was just a small residual left pleural effusion. There were moderate chronic emphysematous changes. There was no mediastinal or hilar adenopathy noted. The previously described nodular distal rectal lesion appeared improved with treatment-related changes. Induration was noted in the surrounding perirectal fat. There was no evidence of metastatic disease in the abdomen/pelvis. Patient presents today accompanied by his for follow-up. He continues to have some rectal pain and skin irritation from previous radiation therapy otherwise he states he is feeling pretty good. He does still have fatigue. He denies fever, chills, night sweats. He he does experience some shortness of breath that is related to his COPD and is chronic in nature. No cough or chest pain. He has some constipation which he takes milk of magnesia for and it is managed well. No blood in the stool. He denies urinary symptoms. He does have generalized weakness and requires a wheelchair if he has to ambulate long distances. Review Of Symptoms:See above. Past Medical History: Benign prostatic hypertrophy Chronic obstructive pulmonary disease History of hypertension, currently not requiring medication Past Surgical History: Bilateral cataract excisions Detached retina repair EGD and colonoscopy on 06/11/2020 and repeat colonoscopy 01/15/2021 Left elbow surgery Biopsy of rectal mass by radial scope in 2020 EGD and colonoscopy in 2020 Allergies: No Known Allergies. Medications: Albuterol Sulfate HFA 2 Puff(s) (of 108 (90 base) mcg/act) Aerosol, solution Inhalation ac (tid) & at bedtime Anusol-HC Cream Topical PRN Budesonide 1 Inhalation (of 0.5 mg/2mL) Suspension Inhalation b.i.d. [facility] Iron 1 Tablet (of 325 (65 fe) mg) Oral daily Lidocaine Cream Topical PRN Perforomist 2 mL (of 20 mcg/2mL) Nebulization solution Inhalation b.i.d. Tamsulosin HCl 1 Capsule (of 0.4 mg) Oral b.i.d. Family History: Father lived to age 92. Mother of breast cancer. One brother is still living at age 80. Social History: Mr. Villarreal is . He is a daily smoker who has smoked 2.0 packs/day for 69 years. He drinks daily. He consumes 3 drinks/day 7 days/week. He has a history of smoking 2 packs of cigarettes daily for 70 years. Alcohol use is estimated at 3-6 beers per day. Physical Examination: Performed on Aug 03, 2021 15:11: Height - 72.00 in, Weight - 157.6 lbs (LOW), BSA - 1.93 sq.m, BMI - 21.37, Temperature - 98.1 F (LOW), Pulse - 73 /min, Respiration - 16 /min, BP - 122/78 mm(hg), O2 Sat - 92 % (LOW), Pain - 0, and Fatigue - 5. Performance Status: 2 - Ambulatory/capable of all self-care, unable to perform any work activities. Up and about more than 50% of waking hours. (ECOG) Constitutional Alert, cooperative, oriented. Mood and affect appropriate. Appears close to chronological age. Well nourished. Well developed. Head Normocephalic; no scars. Respiratory Lungs are clear to auscultation without rhonchi or wheezing. Cardiovascular Regular rate and rhythm of heart without murmurs, gallops or rubs. Abdomen Non-tender, non-distended, no masses, ascites or hepatosplenomegaly. Good bowel sounds. No guarding or rebound tenderness. Extremities No visible deformities, no cyanosis, clubbing or edema. Pulses 3+ and equal bilaterally. Musculoskeletal No tenderness or swelling, generalized weakness we will here today Psychiatric Alert and oriented times three. Coherent speech. Verbalizes understanding of our discussions today. Laboratory: Test performed on Aug 03, 2021 13:35 WBC 4.7 10 3/uL RBC 4.27 10 6/uL HGB 13.5 g/dL HCT 41.6 % MCV 97.4 fl MCH 31.6 pg MCHC 32.5 g/dL RDW 15.0 % Platelet Count 227 10 3/cmm MPV 10.1 fL Neutrophils 3.13 10 3/uL Lymphocytes 0.8 10 3/uL Monocytes 0.4 10 3/uL Eosinophils 0.3 10 3/uL Basophils 0.1 10 3/uL Neutrophil % 66.7 % Lymphocyte % 17.1 % Monocyte % 8.7 % Eosinophil % 5.8 % Basophils % 1.7 % NRBC % 0 % PSA 4.310 ng/mL Test performed on Apr 29, 2021 11:20 Iron 50 mcg/dL Sodium 140 mmol/L Iron Binding Capacity (TIBC) 330 mcg/dl Potassium 4.4 mmol/L % Iron Saturation 15.1 % Chloride 104 mmol/L CO2 31 mmol/L UIBC 280 mcg/dL Anion Gap 9.4 BUN 14 mg/dL Creatinine 0.9 mg/dL Cr Clearance (Est) 64.07 mL/min Glucose 87 mg/dL Osmolality - Calculated 290 mOsm/kg Calcium 8.3 mg/dL Protein, Total 6.0 g/dL Albumin 3.6 g/dL Globulin 2.4 g/dL Bilirubin, Total 0.7 mg/dL ALT (SGPT) 8 U/L AST (SGOT) 15 U/L Alkaline Phosphatase 80 IU/L CEA 5.4 ng/mL Impression: 1. Invasive adenocarcinoma of the rectum, MSI stable. 2. Left lower lobe lung mass with associated pleural effusion. It was initially suspected to be malignant, but it resolved on empiric antibiotic therapy, consistent with inflammatory changes. 3. There was CT evidence of enlarged prostate containing a 1.1 cm low-attenuation lesion in the left prostate gland, also suspicious for malignancy. 4. He had EGD evidence of gastritis and duodenitis in May 2020. 5. COPD. 6. He has a history of hypertension, currently not requiring medication. Plan: 1. Patient with invasive adenocarcinoma of the rectum, MSI stable. There was uncertainty as to the initial staging, but due to his marginal performance status and suspected malignancy in the left lung, his initial treatment was limited to chemoradiation utilizing Xeloda for chemosensitization. Radiation was completed on 03/19/2021 to a total dose of 4800 cGy administered in 24 fractions, his final planned fraction having been omitted due to a pretty severe skin reaction. He appears to have had a significant response. His posttreatment MRI shows findings consistent with T2, N0 disease. With improvement in the left lung findings on the CT scan and in the absence of any other evidence of metastatic disease, we discussed the fact that disease would potentially be curable with surgery. With the location of the tumor, though, it would necessitate an AP resection and a permanent ostomy. At this point, at least, he is opposed to having that procedure, and he prefers instead to just be followed with observation. His CEA is pending and we will determine if there is further course of treatment needed after results are obtained. CT chest, abdomen and pelvis will be performed prior to next visit in three months with cbc, cmp, psa, and cea 2. There was also CT evidence for possible malignancy in the prostate, and his PSA level was elevated. His PSA today has decreased to 4.31 from 26.55 in January 2021. 3. He has iron deficiency anemia. He discontinued his iron supplement due to constipation. Iron studies are still pending and we will determine if there is any further course of treatment needed. Signed By: Lynn Mendoza N.P. <<Signature on File>>
[2021-08-03 17:14] LABS: Carcinoembryonic Antigen 4.6 ng/mL (0.0-4.7)
[2021-08-03 18:39] LABS: Alanine Aminotransferase 16 U/L (0-41); Albumin Level 3.8 g/dL (3.5-5.2); Alkaline Phosphatase 89 IU/L (40-130); Anion Gap 16.4 (5-19); Aspartate Amino Transferase 24 U/L (0-40); Blood Urea Nitrogen 17 mg/dL (8-23); Calcium 9.2 mg/dL (8.5-10.5); Carbon Dioxide 28 mmol/L (22-29); Chloride 100 mmol/L (98-107); Glucose 91 mg/dL (65-115); Iron 61 ug/dL (59-158); Osmolality Calculated 291 mOsm/kg (285-295); Potassium 4.4 mmol/L (3.5-5.1); Sodium 140 mmol/L (136-145); Total Bilirubin 0.7 mg/dL (0.15-1.2); Total Iron Binding Capacity 321 mcg/dl; Total Protein 6.8 g/dL (6.6-8.7); Unsaturated Iron Binding 260 ug/dL (112-347)
== END 2021-08-03 13:15 | disposition home or self-care (01) ==
PROVIDERS: PCP Nurse Practitioner Family; Visit Provider Internal Medicine Medical Oncology
DX: C20 Malignant neoplasm of rectum (principal); C78.02 Secondary malignant neoplasm of left lung; I10 Essential (primary) hypertension; D50.9 Iron deficiency anemia, unspecified; J44.9 Chronic obstructive pulmonary disease, unspecified; N40.0 Benign prostatic hyperplasia without lower urinary tract symptoms; Z79.899 Other long term (current) drug therapy
CPT/HCPCS: 36415; 80053; 82378; 83540; 83550; 84153; 85025; 99214

== ENCOUNTER 2022-02-09 11:31 | Oncology outpatient (recurring) (ONCR) | payer MEDICARE, SELFPAY ==
--- NOTE | 2022-02-09 11:47 | CT_ITS ---
WS: [id number] CT CHEST, ABDOMEN AND PELVIS WITH CONTRAST HISTORY: Follow-up renal cell cancer. TECHNIQUE: Contiguous 5 mm axial imaging performed through the chest, abdomen and pelvis with IV cont rast, oral contrast has been provided. Coronal and sagittal reformats chest. Coronal and sagittal ref ormats through the abdomen and pelvis. All CT scans at [facility] use at least one of these d ose optimization techniques: automated exposure control; mA and/or kV adjustment per patient size (in cludes targeted exams where dose is matched to clinical indication); or iterative reconstruction. CONTRAST: Omnipaque 350; 95 mL IV. DLP: 1388.28 mGy.cm COMPARISON: 04/29/2021 and 01/14/[address]: Severe pulmonary hyperexpansion with central lobular emphysema. There are several new subce ntimeter nodules in the lower lung vigil bilaterally. 5 mm ovoid nodule along the RIGHT superior trino or fissure is new. Could be benign intrapulmonary lymph node. There are additional scattered slightly aerated no spiculated nodules in the lower lung vigil measuring from 3 to 7 mm. These were not pres ent on prior examinations. 14 mm RIGHT hilar lymph node. Not significantly increased in size. Extensi ve atherosclerosis throughout the thoracic aorta. Calcified plaque with intimal thickening and lumina l irregularity. No aneurysm. Normal appearance of the pulmonary artery. Abdomen CT: Low-attenuation throughout the liver. Small low-attenuation nodules within the liver are new. The largest measures 10 mm. Normal appearance of the portal vein. Gallbladder is mildly hydropic with stones. No bile duct dilatation. Splenic granulomata. Atrophic pancreas with mild pancreatic du ct dilatation. The pancreas is poorly visualized. Adrenal glands are poorly visualized due to lack of fat. Bilateral stable renal cysts. There is no obstruction of either kidney. On the early arterial imaging through the upper abdomen there is a dense area of contrast enhancement which appears to be from the fundal mucosa of the stomach. Focal nidus measures 12 mm. Thin line of contrast extends into the lumen of the stomach. On the delayed imaging there is only of blush of enha ncement in the fundus of the stomach mucosa with more dense contrast collecting towards the antrum of the stomach. Findings suspicious for active extravasation and bleeding from possibly a an ulcer or a ngiodysplasia. There is marked constipation and obstipation. Colon is distended with air inspissated fecal material throughout. Very little fat loops of GI tract. No obstructive pattern. Severe atherosclero sis aorta with calcifications extending into the mesenteric arteries. Placing the patient increased r isk for ischemic GI tract. There is mild wall thickening involving the distal sigmoid colon to the re ctum. No adenopathy appreciated. Pelvic CT: Diffusely thickened urinary bladder wall. Probably due to partial distention and outlet ob struction. The prostate gland is enlarged and heterogeneous with calcification. L4 anterolisthesis by [address]/CT chest abd pel w con* IMPRESSION: 1. New, subcentimeter, slightly spiculated pulmonary nodules at the lung bases . These nodules range in size from 3 to 7 mm and are indeterminate for early me tastatic lesions. May also be postinflammatory. New since 04/29/2021. 2. Focal area of active bleeding from the stomach mucosa towards the fundus. B leeding from stomach ulcer, angiodysplasia or tumor. 3. Indeterminate but stable RIGHT hilar lymph node at 14 mm. 4. New low-attenuation masses within the liver. The largest measures 10 mm. Ea rly metastatic site should be considered. 5. Hepatic steatosis. 6. Cholelithiasis. 7. Severe constipation and obstipation. 8. Mild circumferential wall thickening involving the distal sigmoid colon to the rectum. Sigmoidoscopy would be of benefit. 9. Extensive atherosclerotic plaque within the thoracic and abdominal aorta an d mesenteric arteries. Patient at risk for ischemic GI disease. 10. Lymph nodes would be difficult to visualize as there is very little fat se parating the loops of GI tract. 11. Diffuse bladder wall thickening is probably due to outlet obstruction and partial distention. Notified Bayron Kong MD at 02/09/2022 2:38 PM.
[2022-02-09] MEDS: barium sulfate 450 mL Oral Susp PO (12:13)
[2022-02-09] MEDS: iohexol 350 mg/mL 100 mL Btl IV (13:55)
[2022-02-09 14:00] LABS: Blood Urea Nitrogen 9 mg/dL (8-23)
== END 2022-02-18 23:59 | disposition home or self-care (01) ==
LOC: ONCMED 11:32
PROVIDERS: PCP Nurse Practitioner Family; Visit Provider Nurse Practitioner Family
DX: C20 Malignant neoplasm of rectum (principal); C78.7 Secondary malignant neoplasm of liver and intrahepatic bile duct; C78.01 Secondary malignant neoplasm of right lung; C78.02 Secondary malignant neoplasm of left lung; Z79.52 Long term (current) use of systemic steroids; Z79.891 Long term (current) use of opiate analgesic; Z79.899 Other long term (current) drug therapy
CPT/HCPCS: 71260; 74177; 82565; 84520; 99214; Q9967

== ENCOUNTER 2022-03-21 15:25 | Oncology outpatient (recurring) (ONCR) | payer MEDICARE, SELFPAY | END 2022-03-21 23:59 | disposition home or self-care (01) | PROVIDERS: PCP Nurse Practitioner Family; Visit Provider Internal Medicine Medical Oncology | DX: C20 Malignant neoplasm of rectum (principal); F17.210 Nicotine dependence, cigarettes, uncomplicated; Z92.21 Personal history of antineoplastic chemotherapy; Z92.3 Personal history of irradiation; R91.8 Other nonspecific abnormal finding of lung field; K76.89 Other specified diseases of liver; Z79.52 Long term (current) use of systemic steroids | CPT/HCPCS: 99214 ==

== ENCOUNTER 2022-04-20 13:19 | Oncology outpatient (recurring) (ONCR) | payer MEDICARE, SELFPAY ==
[2022-04-20 13:52] LABS: Basophils % 0.5 %; Eosinophils % 0.3 %; Hematocrit 35.4 % (42.0-52.0); Hemoglobin 11.7 g/dL (11.7-16.6); Lymphocytes # 0.9 10^3/uL (0.8-4.8); Lymphocytes % 11.7 %; Mean Corpuscular HGB Conc 33.1 g/dL (30.0-36.0); Mean Corpuscular Hemoglobin 33.1 pg (28.0-34.0); Mean Platelet Volume 9.5 fL (7.4-10.4); Monocytes # 0.6 10^3/uL (0.2-0.9); Monocytes % 8.7 %; Neutrophils # 5.78 10^3/uL (1.8-7.7); Neutrophils % 78.3 %; Nucleated Red Blood Cells % 0 %; Platelet Count 290 10^3/cmm (130-400); Red Blood Count 3.54 10^6/uL (4.1-5.3); Red Cell Distribution Width 14.6 % (12.1-15.1); White Blood Count 7.4 10^3/uL (4.0-10.0)
[2022-04-20 14:18] LABS: Carcinoembryonic Antigen 7.6 ng/mL (0.0-4.7)
[2022-04-20 14:29] LABS: Alanine Aminotransferase 14 U/L (0-41); Albumin Level 3.3 g/dL (3.5-5.2); Alkaline Phosphatase 113 U/L (40-130); Aspartate Amino Transferase 25 U/L (0-40); Blood Urea Nitrogen 10 mg/dL (8-23); Calcium 8.8 mg/dL (8.5-10.5); Carbon Dioxide 28 mmol/L (22-29); Chloride 96 mmol/L (98-107); Globulin 2.4 g/dL (1.3-4.6); Glucose 72 mg/dL (65-115); Osmolality Calculated 280 mOsm/kg (285-295); Sodium 136 mmol/L (136-145); Total Bilirubin 0.5 mg/dL (0.15-1.2); Total Protein 5.7 g/dL (6.6-8.7)
== END 2022-04-20 23:59 | disposition home or self-care (01) ==
PROVIDERS: PCP Nurse Practitioner Family; Visit Provider Internal Medicine Medical Oncology
DX: C20 Malignant neoplasm of rectum (principal); C78.02 Secondary malignant neoplasm of left lung; C78.01 Secondary malignant neoplasm of right lung; C78.7 Secondary malignant neoplasm of liver and intrahepatic bile duct; R19.7 Diarrhea, unspecified; Z79.52 Long term (current) use of systemic steroids; Z79.899 Other long term (current) drug therapy; Z92.21 Personal history of antineoplastic chemotherapy; Z92.3 Personal history of irradiation; F17.210 Nicotine dependence, cigarettes, uncomplicated
CPT/HCPCS: 36415; 80053; 82378; 85025; 99214

== ENCOUNTER 2022-05-26 12:33 | Oncology outpatient (recurring) (ONCR) | payer MEDICARE, SELFPAY ==
[2022-05-26 13:50] LABS: Basophils % 0.5 %; Eosinophils % 0.5 %; Hematocrit 30.4 % (42.0-52.0); Lymphocytes # 0.4 10^3/uL (0.8-4.8); Lymphocytes % 6.3 %; Mean Corpuscular HGB Conc 32.9 g/dL (30.0-36.0); Mean Corpuscular Hemoglobin 31.8 pg (28.0-34.0); Mean Corpuscular Volume 96.8 fl (80-94); Mean Platelet Volume 10.6 fL (7.4-10.4); Monocytes # 0.6 10^3/uL (0.2-0.9); Monocytes % 8.9 %; Neutrophils # 5.48 10^3/uL (1.8-7.7); Neutrophils % 83.5 %; Nucleated Red Blood Cells % 0 %; Platelet Count 278 10^3/cmm (130-400); Red Blood Count 3.14 10^6/uL (4.1-5.3); Red Cell Distribution Width 15.8 % (12.1-15.1); White Blood Count 6.6 10^3/uL (4.0-10.0)
[2022-05-26 14:25] LABS: Alanine Aminotransferase 14 U/L (0-41); Albumin Level 2.6 g/dL (3.5-5.2); Alkaline Phosphatase 106 U/L (40-130); Aspartate Amino Transferase 29 U/L (0-40); Blood Urea Nitrogen 10 mg/dL (8-23); Carbon Dioxide 31 mmol/L (22-29); Chloride 97 mmol/L (98-107); Globulin 2.3 g/dL (1.3-4.6); Glucose 99 mg/dL (65-115); Osmolality Calculated 281 mOsm/kg (285-295); Sodium 136 mmol/L (136-145); Total Bilirubin 0.4 mg/dL (0.15-1.2); Total Protein 4.9 g/dL (6.6-8.7)
[2022-05-26 15:20] LABS: Carcinoembryonic Antigen 7.8 ng/mL (0.0-4.7)
== END 2022-06-21 23:59 | disposition home or self-care (01) ==
PROVIDERS: PCP Nurse Practitioner Family; Visit Provider Internal Medicine Medical Oncology
DX: C20 Malignant neoplasm of rectum (principal); Z92.3 Personal history of irradiation; Z79.52 Long term (current) use of systemic steroids; R91.8 Other nonspecific abnormal finding of lung field; R60.0 Localized edema; Z79.899 Other long term (current) drug therapy
CPT/HCPCS: 36415; 80053; 82378; 85025; 99214

== ENCOUNTER 2022-07-13 11:57 | Oncology outpatient (recurring) (ONCR) | payer MEDICARE, SELFPAY ==
[2022-07-13 12:20] LABS: Basophils % 0.2 %; Eosinophils % 0.1 %; Hematocrit 28.8 % (42.0-52.0); Hemoglobin 9.4 g/dL (11.7-16.6); Lymphocytes # 0.9 10^3/uL (0.8-4.8); Lymphocytes % 9.7 %; Mean Corpuscular HGB Conc 32.6 g/dL (30.0-36.0); Mean Corpuscular Hemoglobin 30.5 pg (28.0-34.0); Mean Corpuscular Volume 93.5 fl (80-94); Mean Platelet Volume 10.9 fL (7.4-10.4); Monocytes # 0.6 10^3/uL (0.2-0.9); Monocytes % 6.7 %; Neutrophils # 7.83 10^3/uL (1.8-7.7); Neutrophils % 82.9 %; Nucleated Red Blood Cells % 0 %; Platelet Count 301 10^3/cmm (130-400); Red Blood Count 3.08 10^6/uL (4.1-5.3); Red Cell Distribution Width 16.1 % (12.1-15.1); White Blood Count 9.5 10^3/uL (4.0-10.0)
[2022-07-13 12:45] LABS: Carcinoembryonic Antigen 11.6 ng/mL (0.0-4.7)
[2022-07-13 12:56] LABS: Alanine Aminotransferase 11 U/L (0-41); Albumin Level 2.7 g/dL (3.5-5.2); Alkaline Phosphatase 100 U/L (40-130); Blood Urea Nitrogen 26 mg/dL (8-23); Calcium 8.5 mg/dL (8.5-10.5); Carbon Dioxide 34 mmol/L (22-29); Chloride 91 mmol/L (98-107); Globulin 2.3 g/dL (1.3-4.6); Glucose 109 mg/dL (65-115); Osmolality Calculated 291 mOsm/kg (285-295); Sodium 138 mmol/L (136-145); Total Bilirubin 0.5 mg/dL (0.15-1.2)
[2022-07-13 13:01] LABS: Anion Gap 16.8 (5-19); Aspartate Amino Transferase 19 U/L (0-40); Potassium 3.8 mmol/L (3.5-5.1)
== END 2022-07-19 23:59 | disposition home or self-care (01) ==
PROVIDERS: PCP Nurse Practitioner Family; Visit Provider Internal Medicine Medical Oncology
DX: C20 Malignant neoplasm of rectum (principal); C78.7 Secondary malignant neoplasm of liver and intrahepatic bile duct; C78.01 Secondary malignant neoplasm of right lung; C78.02 Secondary malignant neoplasm of left lung; R97.0 Elevated carcinoembryonic antigen [CEA]; G89.3 Neoplasm related pain (acute) (chronic); Z79.52 Long term (current) use of systemic steroids; Z79.891 Long term (current) use of opiate analgesic; Z79.899 Other long term (current) drug therapy
CPT/HCPCS: 36415; 80053; 82378; 85025; 99214